=== PATIENT | male | born 1995 | race Caucasian/White ===

== ENCOUNTER 2017-07-30 12:58 | Emergency (ER) | payer OTHER ==
[~2017-07-30] VITALS: Ht 182.9 cm; Wt 65.8 kg
[~2017-07-30 12:58] MED LIST: APAP500 PO; RISPERDAL 1 MG T1 MG
[2017-07-30] MEDS ORDERED: PHENERGAN 25 MG25 M1 PO (13:44)
[2017-07-30 14:00] VITALS: BP 97/66
== END 2017-07-30 14:01 | disposition home or self-care (01) ==
LOC: M.ERS 12:58
DX: R11.2 Nausea with vomiting, unspecified (principal); R19.7 Diarrhea, unspecified; F95.2 Tourette's disorder

== ENCOUNTER 2019-10-11 15:40 | Emergency (ER) | payer MEDICAID ==
[~2019-10-11] VITALS: Ht 182.9 cm; Wt 68.0 kg
[~2019-10-11 15:40] MED LIST changes: +PHENERGAN 25 MG25 M1 PO
[2019-10-11] MEDS ORDERED: BENADRYL25 MG PO (16:26)
[2019-10-11] MEDS ORDERED: PREDNISONE 20 M20 MG PO (16:26)
[2019-10-11] MEDS ORDERED: FAMOTIDINE 20 M20 MG PO (16:32)
[2019-10-11] MEDS ORDERED: ONDANSETRON HCL4 M2 PO (16:35)
[2019-10-11 16:40] VITALS: BP 130/70
== END 2019-10-11 16:41 | disposition home or self-care (01) ==
LOC: M.ERS 15:40
DX: S21.231A Puncture wound without foreign body of right back wall of thorax without penetration into thoracic cavity, initial encounter (principal); R42 Dizziness and giddiness; R11.0 Nausea; F95.2 Tourette's disorder; W57.XXXA Bitten or stung by nonvenomous insect and other nonvenomous arthropods, initial encounter; Y93.89 Activity, other specified; Y92.89 Other specified places as the place of occurrence of the external cause; Y99.8 Other external cause status